=== PATIENT | male | born 1990 | race African-American/Black ===

== ENCOUNTER 2023-10-12 00:56 | Emergency (ER) | payer BC ==
[~2023-10-12] VITALS: Ht 185.4 cm; Wt 70.3 kg
[2023-10-12] MEDS ORDERED: KETOROLAC TROMETHAMINE 30 MG INJ ONE (02:01)
[2023-10-12] MEDS ORDERED: CYCL5TAB PO (02:06)
[2023-10-12] MEDS ORDERED: NAPR-1009 PO (02:06)
[2023-10-12] MEDS: KETOROLAC TROMETHAMINE 30 MG INJ IM ONE (02:07)
[2023-10-12 02:11] VITALS: BP 115/68; O2SAT 98
== END 2023-10-12 02:11 | disposition home or self-care (01) ==
LOC: ER 01:09
DX: G89.29 Other chronic pain (principal); M25.511 Pain in right shoulder; Z79.899 Other long term (current) drug therapy
CPT/HCPCS: 99283; 96372; J1885; A4606; A4663